=== PATIENT | female | born 1950 | race Caucasian/White ===

== ENCOUNTER 2022-01-14 16:06 | Emergency (ER) | payer MEDICARE ==
[2022-01-14] MEDS ORDERED: IPRATROPIUM-ALBUTEROL 3 ML NEB INHALATION STA (18:52)
--- NOTE | 2022-01-14 19:45 | XR ---
EXAMINATION TYPE: XR chest 2V DATE OF EXAM: 01/14/2022 COMPARISON: NONE HISTORY: Cough TECHNIQUE: 2 views FINDINGS: Heart is normal. Lungs are clear of consolidation. There is slight blunting of the right co stophrenic angle. There are no hilar masses. There is mild linear density left lung base. IMPRESSION: Mild pleural reaction at the right lung base. No heart failure. No pulmonary consolidatio n. Subsegmental atelectasis left lung base.
--- NOTE | 2022-01-14 23:30 | ED ---
General Adult HPI - General Chief complaint: Extremity Problem,Nontraumatic Stated complaint: Cough,Weakness Time Seen by Provider: 01/14/22 18:38 Source: patient Mode of arrival: ambulatory Limitations: no limitations - History of Present Illness Initial comments: this 71-year-old female presents with the complaint of cough, shortness of breath, diffuse myalgias, fatigue which has been present for approximately 5 days. She states that it initially started with some pain in her legs. She states that she was seen at an urgent care clinic this past week and was started on some steroids. This seemed to help her leg pain and this is essentially resolved but now she has more pain in her upper back. She denies any production with cough. She states that the cough seems to be worse at night. She denies any known sick contacts. She has no history of COPD or emphysema or asthma. She is a nonsmoker. No other complaints or modifying factors. - Related Data Previous Rx's Medication Instructions Recorded Albuterol Sulfate [Albuterol 4 puff INHALATION Q4H PRN #8.5 gm 01/14/22 Sulfate Hfa] Allergies Allergy/AdvReac Type Severity Reaction Status Date / Time No Known Allergies Allergy Verified 01/14/22 16:55 Review of Systems ROS Statement: Those systems with pertinent positive or pertinent negative responses have been documented in the HPI. ROS Other: All systems not noted in ROS Statement are negative. Past Medical History Past Medical History: No Reported History Past Surgical History: No Surgical Hx Reported Past Psychological History: No Psychological Hx Reported Smoking Status: Never smoker Past Alcohol Use History: None Reported Past Drug Use History: None Reported General Exam - General Exam Comments Initial Comments: GENERAL: The patient is well nourished and well hydrated. VITAL SIGNS: Heart rate, blood pressure, respiratory rate reviewed as recorded in nurse's notes. EYES: Pupils are round and reactive. Extraocular movements are intact. No conjunctival / lid redness or swelling. ENT: No external evidence of injury, swelling, or ecchymosis. Airway is patent. Throat is clear. NECK: Nontender. No swelling or evidence of injury. No subcutaneous emphysema. Trachea is midline. No thyroid mass. HEART: Regular rate and rhythm. Good peripheral pulses. LUNGS/CHEST: Scattered wheezing noted bilaterally. No respiratory distress. No ecchymosis, subcutaneous emphysema, or tenderness. ABDOMEN: Abdomen soft without tenderness. No palpable masses or organomegaly. No peritoneal signs. No abdominal wall swelling or ecchymosis. EXTREMITIES: No extremity tenderness. Normal muscle tone and function. No thoracolumbar tenderness. NEUROLOGIC: Sensation is grossly intact. Cranial nerve exam reveals face is symmetrical, tongue is midline, speech is clear. SKIN: No abrasions or ecchymosis is noted. No induration or masses noted. PSYCHIATRIC: Alert and oriented. Appropriate behavior and judgment. Limitations: no limitations Course Vital Signs 01/14/22 16:50 Temperature 97.7 F Pulse Rate 73 Respiratory 18 Rate Blood Pressure 163/78 O2 Sat by Pulse 90 L Oximetry Medical Decision Making - Medical Decision Making The patient was seen and examined. Chest x-ray shows some mild pleural thickening right base but no definite infiltrate. The influenza came back positive. The covid test came back negative. for oxygen was slightly low at 90% and this will be rechecked. The patient has approximately 5+ days into symptomatology and is not felt as though Tamiflu would be beneficial at this point. She will be prescribed an inhaler. She still has a couple days left of her steroids and she is to continue with this. Tylenol and Motrin are recommended. Mucinex DM recommended. Fluids are encouraged. Close follow-up recommended. Return parameters are discussed. - Lab Data Lab Results 01/14/22 01/14/22 Range/Units 21:56 21:56 Coronavirus (PCR) Not Detected (Not Detectd) Influenza Type A RNA Detected H (Not Detectd) Influenza Type B (PCR) Not Detected (Not Detectd) Disposition Clinical Impression: Influenza, Cough, Dyspnea, Myalgia, Fatigue Disposition: HOME SELF-CARE Condition: Good Instructions (If sedation given, give patient instructions): Influenza (ED) Additional Instructions: please use Motrin and Tylenol as needed for pain and fever. Please use Mucinex DM as needed for cough and congestion. Prescriptions: Albuterol Sulfate [Albuterol Sulfate Hfa] 4 puff INHALATION Q4H PRN #8.5 gm PRN Reason: Cough Is patient prescribed a controlled substance at d/c from ED?: No Referrals: None,Stated [Primary Care Provider] - 1-2 days Time of Disposition: 23:30
[2022-01-15 00:40] VITALS: BP 156/78; PULSE 76; RESP 20; TEMP 98.2
== END 2022-01-15 00:39 | disposition home or self-care (01) ==
LOC: EC 16:06
DX: J10.1 Influenza due to other identified influenza virus with other respiratory manifestations (principal); M79.10 Myalgia, unspecified site; Z20.822 Contact with and (suspected) exposure to COVID-19
CPT/HCPCS: 71046; 87502; 87635; 99285